=== PATIENT | female | born 1970 | race Native Hawaiian/Other Pacific Islander ===

== ENCOUNTER 2017-11-04 20:53 | Emergency (ER) | payer BC ==
[2017-11-04 21:11] VITALS: RESP 18
[2017-11-04] MEDS ORDERED: Sodium Chloride 0.9% 1,000 ML IV STA ×2 (21:16→22:51)
--- NOTE | 2017-11-04 21:53 | ED PDOC ---
Arrival/HPI - General Chief Complaint: Syncope Time Seen by Provider: 11/04/17 21:05 Historian: Patient - History of Present Illness Narrative History of Present Illness (Text): 47 y/o woma w/ pmhx of mandibular infection and subsequent bactereia, s/p tubal ligation , cigarette smoking , fam hx (-) for premature acs, bu + cad and dm in one of her patients [place] [facility] [place] d-dimer(-) / 1 set of ce's (-) / b/l venous doppler (-) w/ otherwise nl cbc/chem/pt/ptt/ inr testing ( all on file here ) for what she describes as a syncope of aftera long da y of work in which she reached for the light prior to bed then awke to finde herself assisted on her bed and assisted off the bed/ w/ LLE in a non-physiologic position, followed by normal days of work on 11/01-11/02 to be awoken by uncontrollable rigors in the early nighttime am of 11/03 accompanied by chest pressure and tightness which all abated within an hour and then she fell back to sleep. 11/03 remainder of day was wnl, although she for the 1st time skipped work, 11/04 today am she was once again awoken by rigors, and now worseining left knee pain , and a new onset rle sciatica likle pain. Pt. denies any exertional exacerbation of her further cp/cortes/sob/op. Of note pt denies any acute symptoms of infective foci such as viral URI like symptoms / dysuria/ rash/nuchal rigidity/ vaginal discharge nor GI symptoms. . 11/04/17 21:41 11/04/17 21:53 11/04/17 21:59 Time/Duration: < week Symptom Onset: Gradual Symptom Course: Worsening Past Medical History - Provider Review Nursing Documentation Reviewed: Yes - Tetanus Immunization Tetanus Immunization: Unknown - Cardiac Hx Cardiac Disorders: No Hx Hypotension: Yes - Pulmonary Hx Respiratory Disorders: No - Neurological Hx Syncope: Yes - HEENT Hx HEENT Disorder: No - Renal Hx Renal Disorder: No - Endocrine/Metabolic Hx Endocrine Disorders: No - Hematological/Oncological Hx Blood Disorders: No - Integumentary Hx Dermatological Disorder: No - Musculoskeletal/Rheumatological Hx Musculoskeletal Disorders: No Hx Falls: No - Gastrointestinal Hx Gastrointestinal Disorders: No - Genitourinary/Gynecological Hx Genitourinary Disorders: No - Psychiatric Hx Psychophysiologic Disorder: No Hx Depression: No Hx Emotional Abuse: No Hx Physical Abuse: No Hx Substance Use: No - Surgical History Other/Comment: wisdom/molar to left side of mouth removed 05/2015. tibal ligation - Suicidal Assessment Feels Threatened In Home Enviroment: No Family/Social History - Physician Review Nursing Documentation Reviewed: Yes Family/Social History: No Known Family HX Smoking Status: Light Smoker < 10 Cigarettes Daily Hx Alcohol Use: No Hx Substance Use: No Hx Substance Use Treatment: No Allergies/Home Meds Allergies/Adverse Reactions: Allergies Penicillins Allergy (Verified 07/14/15 19:42) RASH Review of Systems - Physician Review All systems were reviewed & negative as marked: Yes - Review of Systems Constitutional: Normal Eyes: Normal ENT: Normal Respiratory: Normal Cardiovascular: Normal Gastrointestinal: Normal Genitourinary Female: Normal Musculoskeletal: Normal Skin: Normal Neurological: Normal Endocrine: Normal Hemo/Lymphatic: Normal Psychiatric: Normal Physical Exam Vital Signs Reviewed: Yes Vital Signs Temp Pulse Resp BP Pulse Ox 11/04/17 22:48 98.4 F 68 18 119/71 96 11/04/17 21:05 100 F H 84 18 126/70 96 Temperature: Febrile Blood Pressure: Normal Pulse: Regular Respiratory Rate: Normal Appearance: Positive for: Well-Appearing, Non-Toxic, Comfortable Pain Distress: None Mental Status: Positive for: Alert and Oriented X 3 - Systems Exam Head: Present: Atraumatic, Normocephalic Pupils: Present: PERRL Extroacular Muscles: Present: EOMI Conjunctiva: Present: Normal Mouth: Present: Dry Neck: Present: Normal Range of Motion Respiratory/Chest: Present: Clear to Auscultation, Good Air Exchange. No: Respiratory Distress, Accessory Muscle Use Cardiovascular: Present: Regular Rate and Rhythm, Normal S1, S2. No: Murmurs Abdomen: Present: Normal Bowel Sounds, Other (soft/nt/nd/bs throughout ). No: Tenderness, Distention, Peritoneal Signs Genitourinary/Pelvic Exam: Present: Other (deferred ) Back: Present: Normal Inspection Upper Extremity: Present: Normal Inspection. No: Cyanosis, Edema Lower Extremity: Present: Other (+ medial knee joint line ttp /mild swelling , no realtive varus/valgus laxity ). No: Edema Neurological: Present: GCS=15, CN II-XII Intact, Speech Normal, Motor Func Grossly Intact, Normal Sensory Function, Normal Cerebellar Funct, Norm Deep Tendon Reflexes, Gait Normal, Memory Normal, Normal 2Pt Descrimination Skin: Present: Warm, Dry, Normal Color. No: Rashes Psychiatric: Present: Alert, Oriented x 3, Normal Insight, Normal Concentration Medical Decision Making ED Course and Treatment: 47 y/o woman presents fromn urgent care center w/u(-) for tropninemia/dvt's c/o syncopal events/cp /rigors/subjective fevers cp r/o acs w/ serial ce's /ekgs given family hx - consider observation rigors: infective w/u : [facility] 11/04/17 22:07 11/04/17 22:35 ekg: nsr @ 65 bpm, w/ no 11/04/17 23:17 CP: 2 sets of ce's (-) / ekg's (-) for acute ischemic st-t segments- [place] hs been ruled out, pt essentially PERC (-) d-dimer (-) venous doppler (-) will be advised to f/u with outpatient cardiology for further risk stratification prn coninuing chest pains. Infective foci w/u (+ ) hemorhagic cystitis : levaquin / 2 L IVf's - pt ambulatory and feels better lle knee pain : mild sprain : bulky perdomo wrap RLE sciatica likle pain: much improved s/p toradol /tylenol. headache also abated. 11/04/17 23:22 - Lab Interpretations Lab Results: 11/04/17 22:19 11/04/17 22:19 Lab Results 11/04/17 22:19: Sodium 139, Potassium 3.7, Chloride 105, Carbon Dioxide 24, Anion Gap 15, BUN 12, Creatinine 0.6 L, Est GFR ( Amer) > 60, Est GFR ( Non-Af Amer) > 60, Random Glucose 112 H, Calcium 8.9, Magnesium 2.1, Total Bilirubin 0.3, AST 24, ALT 24, Alkaline Phosphatase 78, Lactate Dehydrogenase 375, Total Creatine Kinase 45, Troponin I < 0.01, Total Protein 6.7, Albumin 4.0 , Globulin 2.8, Albumin/Globulin Ratio 1.4 11/04/17 22:19: Urine Color Yellow, Urine Appearance Sl cloudy, Urine pH 7.5, Ur Specific [place] 1.015, Urine Protein Trace H, Urine Glucose (UA) Negative, Urine Ketones Negative, Urine Blood Large H, Urine Nitrate Positive H, Urine Bilirubin Negative, Urine Urobilinogen 0.2, Ur Leukocyte Esterase Moderate H, Urine RBC 5 - 10, Urine WBC 15 - 20, Ur Epithelial Cells 6 - 8, Urine Bacteria Large 11/04/17 22:19: PT 12.1, INR 1.06, APTT 28.5 11/04/17 22:19: WBC 11.0 D, RBC 4.17, Hgb 12.8, Hct 37.5, MCV 89.9, MCH 30.7, MCHC 34.1, RDW 13.4, Plt Count 250, MPV 9.8, Gran % 70.8 H, Lymph % (Auto) 18.8 L, [place] % (Auto) 9.4 H, Eos % (Auto) 0.8 L, Baso % (Auto) 0.2, Gran # 7.75 H, Lymph # (Auto) 2.1, [place] # (Auto) 1.0 H, Eos # (Auto) 0.1, Baso # (Auto) 0.02 - RAD Interpretation Radiology Orders: 11/04/17 21:15 CHEST TWO VIEWS (PA/LAT) [RAD] Stat 11/04/17 21:53 KNEE LEFT 2 VIEWS (AP & LAT) [RAD] Stat - Medication Orders Current Medication Orders: Sodium Chloride (Sodium Chloride 0.9%) 1,000 mls @ 999 mls/hr IV .Q1H1M STA Stop: 11/04/17 23:51 Last Admin: 11/04/17 23:00 Dose: 999 mls/hr eMAR Start Stop Document 11/04/17 23:00 RD (Rec: 11/04/17 23:00 RD [id number]) Intravenous Solution Start Date 11/04/17 Start Time 23:00 End Date 11/05/17 End time 00:00 Total Infusion Time 60 Discontinued Medications Acetaminophen (Tylenol 325mg Tab) 650 mg PO STAT STA Stop: 11/04/17 21:39 Last Admin: 11/04/17 22:09 Dose: 650 mg MAR Pain/Vitals Document 11/04/17 22:09 RD (Rec: 11/04/17 22:10 RD [id number]) Pain Reassessment Is This A Pain ReAssessment? No Sleep Is patient sleeping during reassessment? No Presence of Pain Presence of Pain Yes Sodium Chloride (Sodium Chloride 0.9%) 1,000 mls @ 999 mls/hr IV .Q1H1M STA Stop: 11/04/17 22:16 Last Admin: 11/04/17 22:09 Dose: 999 mls/hr eMAR Start Stop Document 11/04/17 22:09 RD (Rec: 11/04/17 22:09 RD [id number]) Intravenous Solution Start Date 11/04/17 Start Time 22:09 End Date 11/04/17 End time 23:09 Total Infusion Time 60 Ketorolac Tromethamine (Toradol) 30 mg IVP STAT STA Stop: 11/04/17 21:39 Last Admin: 11/04/17 22:09 Dose: 30 mg MAR Pain Assessment Document 11/04/17 22:09 RD (Rec: 11/04/17 22:09 RD [id number]) Pain Reassessment Is this a pain reassessment? No Sleep Is patient sleeping during reassessment? No Presence of Pain Presence of Pain Yes IVP Administration Document 11/04/17 22:09 RD (Rec: 11/04/17 22:09 RD [id number]) Charges for Administration # of IVP Administrations 1 Levofloxacin/Dextrose (Levaquin 750mg) 750 mg IVPB ONCE ONE PRN Reason: Protocol Stop: 11/04/17 22:46 Last Admin: 11/04/17 23:00 Dose: 750 mg eMAR Start Stop Document 11/04/17 23:00 RD (Rec: 11/04/17 23:00 RD [id number]) Intravenous Solution Start Date 11/04/17 Start Time 23:00 End Date 11/05/17 End time 00:30 Total Infusion Time 90 Disposition/Present on Arrival - Present on Arrival Any Indicators Present on Arrival: No History of DVT/PE: No History of Uncontrolled Diabetes: No Urinary Catheter: No History of Decub. Ulcer: No History Surgical Site Infection Following: None - Disposition Have Diagnosis and Disposition been Completed?: Yes Diagnosis: Urinary tract infection, Dehydration, Atypical chest pain, Sepsis Disposition: HOME/ ROUTINE Disposition Time: 23:25 Patient Plan: Discharge Condition: IMPROVED Discharge Instructions (ExitCare): Chest Pain (ED), Sepsis (ED), Urinary Tract Infections in Adults Print Language: FRENCH Additional Instructions: Please stop smoking if you care about your heart. If you begin to suffer repetitive chest pains please return to The ED for further evaluaton . Further evalution by a cardiologst is also advised for comprehensive chest pain evaluation/cardiac risk stratification. Today we found noveidence of myocardial infarction/ nor blood clot in your chest nor extremitites. We diagnosed you with dehydration and urinary tract infection. Try to drink 2.5 - 3l OF WATER DAILY and especially while taking these antibiotics. exercise while taking these antiobiotcs is advised against. Prescriptions: Acetaminophen [Tylenol] 650 mg PO Q8 PRN #40 capsule PRN Reason: Fever >100.4 F Ciprofloxacin HCl [Cipro] 500 mg PO BID #10 tablet Referrals: Red Ho MD [Primary Care Provider] - Follow up with primary Forms: [employer] (Vietnamese), WORK NOTE
[2017-11-04 22:25] LABS: BASO # 0.02 K/mm3 (0.0-2.0); BASO % 0.2 % (0.0-3.0); EOS # 0.1 (0.0-0.7); EOS % 0.8 % (1.5-5.0); GRAN # 7.75 (1.4-6.5); GRAN % 70.8 % (50.0-68.0); HEMOGLOBIN 12.8 g/dL (12.0-16.0); LYMPH # 2.1 (1.2-3.4); LYMPH % 18.8 % (22.0-35.0); MEAN CELL VOLUME 89.9 fl (80.0-105.0); MEAN CORPUSCULAR HEMOGLOBIN 30.7 pg (25.0-35.0); MEAN CORPUSCULAR HGB CONC 34.1 g/dl (31.0-37.0); MEAN PLATELET VOLUME 9.8 fl (7.0-11.0); MONO % 9.4 % (1.0-6.0); RBC 4.17 10^6/uL (3.5-6.1); RED CELL DISTRIBUTION WIDTH 13.4 % (11.5-14.5)
[2017-11-04 22:34] LABS: ALB/GLOB RATIO 1.4 (1.1-1.8); ALT/SGPT 24 U/L (7-56); AST/SGOT 24 U/L (14-36); BLOOD UREA NITROGEN 12 mg/dL (7-21); CALCIUM 8.9 mg/dL (8.4-10.5); GFR AFRICAN-AMERICAN > 60; GFR NON-AFRICAN AMERICAN > 60
[2017-11-04 22:39] LABS: PH,URINE 7.5 (4.7-8.0); URINE APPEARANCE SL CLOUDY (CLEAR); URINE BILIRUBIN NEGATIVE (NEGATIVE); URINE BLOOD LARGE (NEGATIVE); URINE COLOR YELLOW (YELLOW); URINE GLUCOSE (UA) NEGATIVE (NEGATIVE); URINE LEUKOCYTE ESTERASE MODERATE Leu/uL (NEGATIVE); URINE PROTEIN TRACE mg/dL (<30 mg/dL); URINE UROBILINOGEN 0.2 E.U./dL (<1 E.U./dL)
[2017-11-04 22:45] LABS: INR 1.06 (0.93-1.08); PARTIAL THROMBOPLASTIN TIME 28.5 Seconds (25.1-36.5); PROTHROMBIN TIME 12.1 SECONDS (9.4-12.5); TROPONIN I < 0.01 ng/mL
[2017-11-04] MEDS ORDERED: levoFLOXacin 750 mg in D5W 150 ML BAG IVPB ONE (22:45)
[2017-11-04 22:48] VITALS: TEMP 98.4
[2017-11-04 22:58] LABS: URINE WBC 15 - 20 /hpf (0-6)
[2017-11-04 22:59] LABS: URINE BACTERIA LARGE (NEG)
[2017-11-05 00:39] VITALS: BP 107/65; PULSE 73; O2SAT 98
--- NOTE | 2017-11-05 07:28 | RAD ---
HISTORY: Routine medical exam COMPARISON: No prior. TECHNIQUE: Chest PA and lateral FINDINGS: LUNGS: No active pulmonary disease. PLEURA: No significant pleural effusion identified. No pneumothorax apparent. CARDIOVASCULAR: No radiographic findings to suggest acute or significant cardiovascular disease. OSSEOUS STRUCTURES: No significant abnormalities. VISUALIZED UPPER ABDOMEN: Normal. OTHER FINDINGS: None. IMPRESSION: No active disease.
--- NOTE | 2017-11-05 07:28 | RAD ---
PROCEDURE: Left Knee Radiographs. HISTORY: Posttraumatic pain COMPARISON: None. FINDINGS: BONES: Normal. No fracture. JOINTS: Normal. No osteoarthritis. JOINT EFFUSION: None. OTHER FINDINGS: None. IMPRESSION: Normal radiographs of the left knee.
--- NOTE | 2017-11-05 13:01 | CARD ---
APPROVED REPORT EKG Measurement Heart [id number] <Conclusion> Normal sinus rhythm Possible Left atrial enlargement Incomplete right bundle branch block Borderline ECG
== END 2017-11-05 00:38 | disposition home or self-care (01) ==
LOC: ED 20:53
DX: N39.0 Urinary tract infection, site not specified (principal); E86.0 Dehydration; R07.89 Other chest pain; A41.9 Sepsis, unspecified organism
CPT/HCPCS: 71046; 73560; 80053; 81001; 82550; 83615; 83735; 84484; 85025; 85610; 85730; 87040; 87086; 87181; 93005; 96361; 96365; 96375; 99285; J1885; J7030

== ENCOUNTER 2017-11-06 10:57 | Inpatient (IN) | payer BC ==
[2017-11-06 11:05] VITALS: BMI 21.9
[2017-11-06] MEDS ORDERED: Sodium Chloride 0.9% 1,000 ML IV STA (11:20)
--- NOTE | 2017-11-06 11:23 | ED PDOC ---
Arrival/HPI - General Chief Complaint: Fever Time Seen by Provider: 11/06/17 11:02 Historian: Patient - History of Present Illness Narrative History of Present Illness (Text): 11/06/17 11:20 47 year old female, whose PMH includes hypotension, who presents to the emergency department complaining of right sided flank pain since 5 days ago. Patient reports she was diagnosed with a UTI 2 days ago when she went to the emergency department, but the pain has become worse and associated with fever and fatigue. Patient denies shortness of breath, chest pain, nausea, vomiting, diarrhea, hematuria, or other complaints. PMD: Dr. Christian Time/Duration: < week Symptom Onset: Gradual Symptom Course: Worsening Context: Home Past Medical History - Provider Review Nursing Documentation Reviewed: Yes - Infectious Disease Hx of Infectious Diseases: None - Tetanus Immunization Tetanus Immunization: Unknown - Cardiac Hx Cardiac Disorders: No Hx Hypotension: Yes - Pulmonary Hx Respiratory Disorders: No - Neurological Hx Syncope: Yes - HEENT Hx HEENT Disorder: No - Renal Hx Renal Disorder: No - Endocrine/Metabolic Hx Endocrine Disorders: No - Hematological/Oncological Hx Blood Disorders: No - Integumentary Hx Dermatological Disorder: No - Musculoskeletal/Rheumatological Hx Musculoskeletal Disorders: No Hx Falls: No - Gastrointestinal Hx Gastrointestinal Disorders: No - Genitourinary/Gynecological Hx Genitourinary Disorders: No - Psychiatric Hx Psychophysiologic Disorder: No Hx Depression: No Hx Emotional Abuse: No Hx Physical Abuse: No Hx Substance Use: No - Surgical History Other/Comment: wisdom/molar to left side of mouth removed 05/2015. tibal ligation - Suicidal Assessment Feels Threatened In Home Enviroment: No Family/Social History - Physician Review Nursing Documentation Reviewed: Yes Family/Social History: Unknown Family HX Smoking Status: Light Smoker < 10 Cigarettes Daily Hx Alcohol Use: No Hx Substance Use: No Hx Substance Use Treatment: No Allergies/Home Meds Allergies/Adverse Reactions: Allergies Penicillins Allergy (Verified 07/14/15 19:42) RASH Home Medications: Home Meds Medication Instructions Recorded Confirmed Ferrous Sulfate [Feosol] 325 mg PO DAILY 11/06/17 11/06/17 Multivitamin [Multivitamins] 1 each PO DAILY 11/06/17 11/06/17 Review of Systems - Review of Systems Constitutional: Fatigue, Fevers Respiratory: absent: SOB Cardiovascular: absent: Chest Pain Gastrointestinal: Abdominal Pain (right sided radiating to back ). absent: Diarrhea, Nausea, Vomiting Genitourinary Female: absent: Hematuria Musculoskeletal: Back Pain (right sided ) Skin: absent: Rash Neurological: absent: Headache Endocrine: absent: Diaphoresis Physical Exam Vital Signs Reviewed: Yes Vital Signs Temp Pulse Resp BP Pulse Ox 11/06/17 12:20 100.1 F H 88 18 106/65 99 11/06/17 11:06 99.6 F 86 18 104/62 99 Temperature: Afebrile Blood Pressure: Normal Pulse: Regular Respiratory Rate: Normal Appearance: Positive for: Well-Appearing, Non-Toxic, Comfortable Pain Distress: None Mental Status: Positive for: Alert and Oriented X 3 - Systems Exam Head: Present: Atraumatic, Normocephalic Pupils: Present: PERRL Extroacular Muscles: Present: EOMI Conjunctiva: Present: Normal Cardiovascular: Present: Regular Rate and Rhythm, Normal S1, S2. No: Murmurs Abdomen: Present: Tenderness (right sided flank pain), Normal Bowel Sounds. No : Distention, Peritoneal Signs, Guarding Neurological: Present: GCS=15, CN II-XII Intact, Speech Normal Skin: Present: Warm, Dry, Normal Color. No: Rashes Psychiatric: Present: Alert, Oriented x 3, Normal Insight, Normal Concentration Medical Decision Making ED Course and Treatment: 11/06/17 Impression: 47 year old female with right sided flank tenderness complaining of right sided flank pain and fever since 5 days. Plan: -- CT abdomen and pelvis -- Labs -- Sodium Chloride -- Urinalysis -- Reassess and disposition Progress Notes: 11/06/17 14:20 CT abdomen and pelvis: Creator : Jose Ro MD FINDINGS: LOWER THORAX: Unremarkable. LIVER: Unremarkable. No gross lesion or ductal dilatation. GALLBLADDER AND BILE DUCTS: Unremarkable. PANCREAS: Unremarkable. No gross lesion or ductal dilatation. SPLEEN: Unremarkable. ADRENALS: Unremarkable. No mass. KIDNEYS AND URETERS: There is perinephric stranding around the right kidney. The right kidney also appears slightly enlarged. There is no evidence of hydronephrosis. Findings could be secondary to a recently passed stone or to pyelonephritis. Clinical correlation is suggested VASCULATURE: Unremarkable. No aortic aneurysm. BOWEL: Unremarkable. No obstruction. No gross mural thickening. APPENDIX: Unremarkable. Normal appendix. PERITONEUM: Unremarkable. No free fluid. No free air. LYMPH NODES: Unremarkable. No enlarged lymph nodes. BLADDER: Unremarkable. REPRODUCTIVE: Unremarkable. BONES: No acute fracture. OTHER FINDINGS: None. IMPRESSION: There is perinephric stranding around the right kidney. The right kidney also appears slightly enlarged. There is no evidence of hydronephrosis. Findings could be secondary to a recently passed stone or to pyelonephritis. Clinical correlation is suggested 11/06/17 16:23 pt with failure of outpt. discussed with dr casanova acceptchidi for admission. 11/06/17 16:24 allergy to pcn is rash, will give cephalosporin - Lab Interpretations Lab Results: 11/06/17 11:30 11/06/17 11:30 Lab Results 11/06/17 11:30: Sodium 143, Potassium 3.6, Chloride 106, Carbon Dioxide 27, Anion Gap 13, BUN 8, Creatinine 0.5 L, Est GFR ( Amer) > 60, Est GFR (Non -Af Amer) > 60, Random Glucose 86, Calcium 8.9, Magnesium 2.2, Total Bilirubin 0.3, AST 21, ALT 32, Alkaline Phosphatase 87, Total Protein 6.8, Albumin 3.8, Globulin 3.0, Albumin/Globulin Ratio 1.3, Lipase 29 11/06/17 11:30: Urine Color Yellow, Urine Appearance Clear, Urine pH 8.0, Ur Specific [place] >= 1.030, Urine Protein Trace H, Urine Glucose (UA) Negative, Urine Ketones Negative, Urine Blood Moderate H, Urine Nitrate Negative, Urine Bilirubin Negative, Urine Urobilinogen 0.2, Ur Leukocyte Esterase Trace H, Urine RBC 10 - 15, Urine WBC 2 - 5, Ur Epithelial Cells 4 - 5, Urine Bacteria Many, Urine Other [place]yeast 11/06/17 11:30: PT 13.6 H, INR 1.18 H, APTT 28.9 11/06/17 11:30: WBC 14.2 H D, RBC 4.13, Hgb 12.7, Hct 37.5, MCV 90.8, MCH 30.8, MCHC 33.9, RDW 13.3, Plt Count 236, MPV 9.6, Gran % 70.4 H, Lymph % (Auto) 15.9 L, [place] % (Auto) 13.2 H, Eos % (Auto) 0.4 L, Baso % (Auto) 0.1, Gran # 9.97 H, Lymph # (Auto) 2.3, [place] # (Auto) 1.9 H, Eos # (Auto) 0.1, Baso # (Auto) 0.02 I have reviewed the lab results: Yes - RAD Interpretation Radiology Orders: 11/06/17 11:20 ABD & PELVIS W/O PO OR IV CONT [CT] Stat [employer] Driver: Radiologist - Medication Orders Current Medication Orders: Hydromorphone HCl (Dilaudid) 0.25 mg IVP Q6H PRN PRN Reason: Pain, moderate (4-7) Discontinued Medications Sodium Chloride (Sodium Chloride 0.9%) 1,000 mls @ 1,000 mls/hr IV .Q1H STA Stop: 11/06/17 12:19 Last Admin: 11/06/17 11:41 Dose: 1,000 mls/hr eMAR Start Stop Document 11/06/17 11:41 HI (Rec: 11/06/17 11:42 HI [id number]) Intravenous Solution Start Date 11/06/17 Start Time 11:42 Ceftriaxone Sodium (Rocephin 1 Gram Ivpb) 1 gm in 100 mls @ 100 mls/hr IVPB STAT STA PRN Reason: Protocol Stop: 11/06/17 12:56 Last Admin: 11/06/17 12:30 Dose: 100 mls/hr eMAR Start Stop Document 11/06/17 12:30 HI (Rec: 11/06/17 12:30 ME [id number]) Intravenous Solution Start Date 11/06/17 Start Time 12:30 Ketorolac Tromethamine (Toradol) 30 mg IVP STAT STA Stop: 11/06/17 11:56 Last Admin: 11/06/17 12:29 Dose: 30 mg MAR Pain Assessment Document 11/06/17 12:29 HI (Rec: 11/06/17 12:30 [id number] Pain Reassessment Is this a pain reassessment? No Location Left, Right or Bilateral Right Upper or Lower Lower Pain Location Body Site Abdomen Description Description Constant Intensity of Pain at present 7 Pain Behavior Moaning Facial Grimacing VS Changes IVP Administration Document 11/06/17 12:29 HI (Rec: 11/06/17 12:30 HI [id number]) Charges for Administration # of IVP Administrations 1 Pneumococcal Polyvalent Vaccine (Pneumovax 23 Vaccine) 0.5 ml IM .ONCE ONE Stop: 11/06/17 15:49 - Scribe Statement The provider has reviewed the documentation as recorded by the Scribe Yolanda Stevenson Provider Scribe Attestation: All medical record entries made by the Scribe were at my direction and personally dictated by me. I have reviewed the chart and agree that the record accurately reflects my personal performance of the history, physical exam, medical decision making, and the department course for this patient. I have also personally directed, reviewed, and agree with the discharge instructions and disposition. Disposition/Present on Arrival - Present on Arrival Any Indicators Present on Arrival: No History of DVT/PE: No History of Uncontrolled Diabetes: No Urinary Catheter: No History of Decub. Ulcer: No History Surgical Site Infection Following: None - Disposition Have Diagnosis and Disposition been Completed?: Yes Diagnosis: Pyelonephritis Disposition: HOSPITALIZED Disposition Time: 03:00 Condition: STABLE
[2017-11-06 11:49] LABS: BASO # 0.02 K/mm3 (0.0-2.0); BASO % 0.1 % (0.0-3.0); EOS # 0.1 (0.0-0.7); EOS % 0.4 % (1.5-5.0); GRAN # 9.97 (1.4-6.5); GRAN % 70.4 % (50.0-68.0); HEMOGLOBIN 12.7 g/dL (12.0-16.0); LYMPH # 2.3 (1.2-3.4); LYMPH % 15.9 % (22.0-35.0); MEAN CELL VOLUME 90.8 fl (80.0-105.0); MEAN CORPUSCULAR HEMOGLOBIN 30.8 pg (25.0-35.0); MEAN CORPUSCULAR HGB CONC 33.9 g/dl (31.0-37.0); MEAN PLATELET VOLUME 9.6 fl (7.0-11.0); MONO # 1.9 (0.1-0.6); MONO % 13.2 % (1.0-6.0); RBC 4.13 10^6/uL (3.5-6.1); RED CELL DISTRIBUTION WIDTH 13.3 % (11.5-14.5); WHITE BLOOD COUNT 14.2 10^3/ul (4.5-11.0)
[2017-11-06 11:51] LABS: URINE BILIRUBIN NEGATIVE (NEGATIVE); URINE BLOOD MODERATE (NEGATIVE); URINE GLUCOSE (UA) NEGATIVE (NEGATIVE); URINE LEUKOCYTE ESTERASE TRACE Leu/uL (NEGATIVE); URINE PROTEIN TRACE mg/dL (<30 mg/dL); URINE UROBILINOGEN 0.2 E.U./dL (<1 E.U./dL)
[2017-11-06 11:54] LABS: URINE APPEARANCE CLEAR (CLEAR); URINE COLOR YELLOW (YELLOW)
[2017-11-06] MEDS ORDERED: cefTRIAXone 1 gm 1 GM/100 ML BAG IVPB STA (11:57)
[2017-11-06 11:58] LABS: ALB/GLOB RATIO 1.3 (1.1-1.8); ALBUMIN 3.8 g/dL (3.0-4.8); ALT/SGPT 32 U/L (7-56); AST/SGOT 21 U/L (14-36); BLOOD UREA NITROGEN 8 mg/dL (7-21); CALCIUM 8.9 mg/dL (8.4-10.5); GFR AFRICAN-AMERICAN > 60; GFR NON-AFRICAN AMERICAN > 60; LIPASE 29 U/L (23-300)
[2017-11-06 12:16] LABS: INR 1.18 (0.93-1.08); PARTIAL THROMBOPLASTIN TIME 28.9 Seconds (25.1-36.5); PROTHROMBIN TIME 13.6 SECONDS (9.4-12.5)
[2017-11-06 12:22] LABS: URINE BACTERIA MANY (NEG)
--- NOTE | 2017-11-06 14:19 | CT ---
PROCEDURE: CT Abdomen and Pelvis without intravenous contrast HISTORY: right flank pain COMPARISON: None. TECHNIQUE: Without contrast.. Contrast dose: Radiation dose: Total exam DLP = 485 mGy-cm. This CT exam was performed using one or more of the following dose reduction techniques: Automated exposure control, adjustment of the mA and/or kV according to patient size, and/or use of iterative reconstruction technique. FINDINGS: LOWER THORAX: Unremarkable. LIVER: Unremarkable. No gross lesion or ductal dilatation. GALLBLADDER AND BILE DUCTS: Unremarkable. PANCREAS: Unremarkable. No gross lesion or ductal dilatation. SPLEEN: Unremarkable. ADRENALS: Unremarkable. No mass. KIDNEYS AND URETERS: There is perinephric stranding around the right kidney. The right kidney also appears slightly enlarged. There is no evidence of hydronephrosis. Findings could be secondary to a recently passed stone or to pyelonephritis. Clinical correlation is suggested VASCULATURE: Unremarkable. No aortic aneurysm. BOWEL: Unremarkable. No obstruction. No gross mural thickening. APPENDIX: Unremarkable. Normal appendix. PERITONEUM: Unremarkable. No free fluid. No free air. LYMPH NODES: Unremarkable. No enlarged lymph nodes. BLADDER: Unremarkable. REPRODUCTIVE: Unremarkable. BONES: No acute fracture. OTHER FINDINGS: None. IMPRESSION: There is perinephric stranding around the right kidney. The right kidney also appears slightly enlarged. There is no evidence of hydronephrosis. Findings could be secondary to a recently passed stone or to pyelonephritis. Clinical correlation is suggested
[2017-11-06] MEDS ORDERED: HYDROmorphone 0.5 mg/0.5 ml ISec IVP PRN (15:33)
[2017-11-06] MEDS ORDERED: Pneumococcal 23-Valent Vaccine IM ONE (15:48)
--- NOTE | 2017-11-06 17:17 | CP.PCM.CON ---
History of Present Illness - History of Present Illness History of Present Illness: 47 year old female with PMH of tubal ligation, was recently seen in the ED 2 days ago after complaining of dysuria for 3 days and she was sent home to treat UTI with Ciprofloxacin. However, she started developing fevers, nausea and right sided flank pain and right sided abdominal pain. She denies diarrhea, no headache or dizziness, had chills and sweats, no blurring of vision, no chest pain, no SOB, no cough or colds. In the ED, the patient had CT A/P done which is showing right sided perinephric stranding. Infectious Diseases consult is requested to further evaluate and manage. The patient denies recent travel outside of [place] in the past 3 months. Review of Systems - Review of Systems All systems: reviewed and no additional remarkable complaints except (as per HPI ) Past Patient History - Infectious Disease Hx of Infectious Diseases: None - Tetanus Immunizations Tetanus Immunization: Unknown - Past Social History Smoking Status: Light Smoker < 10 Cigarettes Daily - CARDIAC Hx Cardiac Disorders: No Hx Hypotension: Yes - PULMONARY Hx Respiratory Disorders: No - NEUROLOGICAL Hx Syncope: Yes - HEENT Hx HEENT Problems: No - RENAL Hx Chronic Kidney Disease: No - ENDOCRINE/METABOLIC Hx Endocrine Disorders: No - HEMATOLOGICAL/ONCOLOGICAL Hx Blood Disorders: No - INTEGUMENTARY Hx Dermatological Problems: No - MUSCULOSKELETAL/RHEUMATOLOGICAL Hx Musculoskeletal Disorders: No Hx Falls: No - GASTROINTESTINAL Hx Gastrointestinal Disorders: No - GENITOURINARY/GYNECOLOGICAL Hx Genitourinary Disorders: No - PSYCHIATRIC Hx Psychophysiologic Disorder: No Hx Depression: No Hx Emotional Abuse: No Hx Physical Abuse: No Hx Substance Use: No - SURGICAL HISTORY Other/Comment: wisdom/molar to left side of mouth removed 05/2015. tibal ligation Meds Allergies/Adverse Reactions: Allergies Allergy/AdvReac Type Severity Reaction Status Date / Time Penicillins Allergy RASH Verified 07/14/15 19:42 - Medications Medications: Current Medications Hydromorphone HCl (Dilaudid) 0.25 mg IVP Q6H PRN PRN Reason: Pain, moderate (4-7) Physical Exam - Constitutional Appears: Non-toxic - Head Exam Head Exam: NORMAL INSPECTION - ENT Exam ENT Exam: Mucous Membranes Moist - Neck Exam Neck exam: Negative for: Meningismus - Respiratory Exam Respiratory Exam: absent: Rales, Rhonchi - Cardiovascular Exam Cardiovascular Exam: +S1, +S2 - GI/Abdominal Exam GI & Abdominal Exam: Soft. absent: Tenderness - Back Exam Back exam: CVA tenderness (R) Results - Vital Signs Recent Vital Signs: Last Vital Signs Temp 99.8 F H 11/06/17 15:19 Pulse 82 11/06/17 15:19 Resp 18 11/06/17 15:19 BP 110/72 11/06/17 15:19 Pulse Ox 99 11/06/17 15:10 - Labs Result Diagrams: 11/06/17 11:30 11/06/17 11:30 Assessment & Plan - Assessment and Plan (Free Text) Plan: Assessment sepsis due to right sided pyelonephritis, growing gram negative bacilli in the urine Plan Due to PCN allergy, we have started Azactam pending identification and sensitvities of the gram negative bacilli in the urine from 11/04/2017; will also follow up blood cx and repeat urine cx from 11/16/2017 will check HIV test will monitor clinically
[2017-11-06] MEDS: Aztreonam 1 Gm in NS 100mL 100 ML IVPB SCH ×2 (17:40→21:39)
[2017-11-06 21:56] LABS: PH,URINE 6.5 (4.7-8.0); URINE BILIRUBIN NEGATIVE (NEGATIVE); URINE BLOOD LARGE (NEGATIVE); URINE GLUCOSE (UA) NEGATIVE (NEGATIVE); URINE LEUKOCYTE ESTERASE TRACE Leu/uL (NEGATIVE); URINE PROTEIN NEGATIVE mg/dL (<30 mg/dL); URINE UROBILINOGEN 0.2 E.U./dL (<1 E.U./dL)
[2017-11-06 21:57] LABS: URINE APPEARANCE CLEAR (CLEAR); URINE COLOR COLORLESS (YELLOW)
[2017-11-06 22:10] LABS: URINE EPITHELIAL CELLS 0 - 2 /hpf (0-5); URINE WBC 0 - 2 /hpf (0-6)
[2017-11-07] MEDS: Aztreonam 1 Gm in NS 100mL 100 ML IVPB SCH ×3 (05:37→22:02)
[2017-11-07 06:34] LABS: MEAN CELL VOLUME 90.1 fl (80.0-105.0); MEAN CORPUSCULAR HEMOGLOBIN 30.3 pg (25.0-35.0); MEAN CORPUSCULAR HGB CONC 33.6 g/dl (31.0-37.0); MEAN PLATELET VOLUME 9.9 fl (7.0-11.0); RBC 3.63 10^6/uL (3.5-6.1); RED CELL DISTRIBUTION WIDTH 13.4 % (11.5-14.5); WHITE BLOOD COUNT 8.8 10^3/ul (4.5-11.0)
[2017-11-07 06:56] LABS: IRON 43 ug/dL (45-180)
[2017-11-07 06:57] LABS: BLOOD UREA NITROGEN 9 mg/dL (7-21); CALCIUM 8.7 mg/dL (8.4-10.5); GFR AFRICAN-AMERICAN > 60; GFR NON-AFRICAN AMERICAN > 60; HDL CHOLESTEROL 40 mg/dL (29-60)
[2017-11-07 07:05] LABS: % IRON SATURATION 15 % (20-55); TOTAL IRON BINDING CAPACITY 292 ug/dL (265-497)
[2017-11-07 07:08] LABS: LDL CHOLESTEROL 81 mg/dL (0-129)
--- NOTE | 2017-11-07 07:16 | HP ---
CHIEF COMPLAINT: Fever, flank pain. HISTORY OF PRESENT ILLNESS: Ms. Imani Brooks is a 47-year-old female with past medical history of hypotension, came to the Emergency Department complaining of right-sided flank pain since 5 days. Patient reports that she was diagnosed with UTI 2 days ago when she went to the Emergency Department but the pain has become worse and associated with fever and fatigue. Patient denies shortness of breath. No chest pain. No nausea, vomiting or diarrhea. No itchiness of the skin. Patient last seen in the [facility], also antibiotics was given but was not helpful. PAST MEDICAL HISTORY: History of hypotension, history of syncope. FAMILY HISTORY: Father and mother noncontributory. HABITS: Light smoker. No alcohol. No substance abuse. ALLERGIES: PATIENT IS ALLERGIC WITH PENICILLIN. HOME MEDICATIONS: Iron sulfate, multivitamins. REVIEW OF SYSTEMS: Patient was seen on the bedside in her room. Her daughter, was sitting on the bedside also. Still having pain but little bit better. No nausea or vomiting. No fever. No chills. No headache. No dizziness. No chest pain. No palpitation. No rash on the skin. PHYSICAL EXAMINATION: VITAL SIGNS: Temperature 99.6, T-max 100.1; pulse 88, respiratory rate 18, blood pressure 106/65, pulse oximetry 99%. HEENT: Head: Normocephalic, atraumatic. Eyes: PERRLA. Extraocular muscles intact. Conjunctivae clear. Nose patent. Mucous membranes moist. NECK: Supple. No carotid bruit. No JVD or thyromegaly. CHEST: Bilaterally symmetrical. HEART: S1 and S2 positive. LUNGS: Clear to auscultation. ABDOMEN: Soft. Bowel sounds present. No organomegaly. EXTREMITIES: No edema. No cyanosis. NEUROLOGIC: Patient is awake and alert. Moving all 4 extremities. No focal deficits. LABORATORY DATA: White blood cell 14.2, hemoglobin 12.7, hematocrit 37.5, platelets 236. Sodium 143, potassium 3.6, BUN 8, creatinine 0.7, glucose 86. ASSESSMENT AND PLAN: Ms. Imani Brooks is a 47-year-old lady with leukocytosis, right flank pain, urinary tract infection, pyelonephritis, seen by Dr. Man Winston, partner of Dr. Collins. Patient had sepsis due to right-sided pyelonephritis, gram-negative bacilli in the urine. Due to bacillus, we have started Azactam, pending . negative bacilli in the urine from 11/03/2017, will follow with the blood cultures also. Repeat urine culture . We will do human immunodeficiency virus testing also as per Infectious Disease, Dr. Man Winston. We would consult with urologist also. Gastrointestinal and deep venous thrombosis prophylaxis. Repeat labs. We will follow up. Jaimie Collazo MD LEXIE
[2017-11-07 13:29] LABS: FOLATE 8.5 ng/mL
[2017-11-07 19:22] VITALS: O2SAT 97
--- NOTE | 2017-11-07 21:56 | PN ---
DATE: 11/07/2017 SUBJECTIVE: The patient is a 47-year-old female. The patient is seen and examined on the bedside. I am dictating progress note for 11/07/2018. DaughterMukul was sitting on the bedside also. Still having discomfort in the right flank, but not severe pain. No fever. No chills. No nausea, vomiting, diarrhea. No hematuria or hematochezia. No headache. No dizziness. No chest pain or palpitation. PHYSICAL EXAMINATION: VITAL SIGNS: Temperature 97.7, pulse rate 65, blood pressure 110/80 respiratory rate 20. HEENT: Head normocephalic, atraumatic. Eyes PERRLA. Extraocular muscles intact. Conjunctivae clear. Nose patent. Mucous membrane moist. NECK: Supple. No carotid bruit. No JVD or thyromegaly. CHEST: Bilaterally symmetrical. HEART: S1 and S2 positive. LUNGS: Clear to auscultation. ABDOMEN: Soft. Bowel sounds positive. No organomegaly. EXTREMITIES: No edema. No cyanosis. NEUROLOGICAL: The patient is awake and alert. Moving all 4 extremities. No focal deficits. MEDICATIONS: Azactam, Dilaudid, Pepcid, Tylenol. LABORATORY DATA: White blood cells 8.8, hemoglobin 11, hematocrit 32.7, platelets 229. On admission, white blood cell was 14.2. Sodium 143, potassium 3.7, BUN 9, creatinine 0.4, iron 43. ASSESSMENT AND PLAN: Ms. Imani Brooks, 47-year-old lady with leukocytosis, improved; anemia; hyperchloremia; iron deficiency. Came with right leg pain. Seen by Infectious Disease, Dr. Man Winston. The patient has history of tubal ligation. Seen in Emergency Department 2 times. Complaining of dysuria. The patient was sent home with ciprofloxacin. Came back with developing fever, nausea, right-sided flank pain and right-sided abdominal pain. Has right-sided pyelonephritis, growing gram-negative bacilli in the urine. Due to penicillin allergy, the patient was started on Azactam. Pending identification and sensitivities of the gram-negative bacilli in the urine. We will also follow up blood cultures and repeat urine cultures. Human immunodeficiency virus test done, results are pending. Discussion done with nursing staff. Reviewed CAT scan of the abdomen and pelvis. As per Dr. Schroeder, there is a perinephric stranding around the right kidney. The right kidney also appears slightly large. There is no obvious hydronephrosis. Finding could be secondary to recently passed stone or pyelonephritis. We will continue present treatment. Discussion done with the patient and the patient's daughter, Mukul. All questions answered. Waiting for input from Dr. Hilliard. We will follow. Jaimie Collazo MD MTDD
--- NOTE | 2017-11-08 00:33 | PN ---
DATE: 11/07/2017 SUBJECTIVE: The patient is in bed, was seen earlier today in room 360, bed 1, comfortable. No fevers, no chills. Overall, she appears to be improving. PHYSICAL EXAMINATION: VITAL SIGNS: Temperature is down to 98.4, it went up to 100.1 yesterday with a heart rate of 82, respiratory rate of 18. HEENT: Unremarkable. NECK: Supple. LUNGS: Have decreased breath sounds. HEART: Normal S1, S2. ABDOMEN: Soft, nontoxic. No rebound. No guarding. LABORATORY DATA: Reveals a white count is down to 8.8, hemoglobin of 11. Chemistries reveals a BUN of 8, creatinine of 0.8. Urinalysis reveals the patient had 2-5 wbc's. Microbiology reveals the urine cultures have no growth. CAT scan of the abdomen and pelvis reveals the patient to have a perinephric stranding around the right kidney. Review of orders reveals the patient to be on aztreonam. ASSESSMENT AND PLAN: This is a 47-year-old female, admitted with low-grade fevers. The patient was treated as outpatient for urinary tract infection with Cipro without improvement. Right now sepsis with a right-sided hydronephritis with repeat cultures, no growth. The patient did have Escherichia coli from 11/04/2017, that is pansensitive including sensitive to Cipro. THE PATIENT IS ALLERGIC TO PENICILLIN. Once the patient's symptoms did improve to use p.o. Cipro, we will complete 10 days of antibiotic therapy. Isaac Collins MD
[2017-11-08] MEDS: Aztreonam 1 Gm in NS 100mL 100 ML IVPB SCH ×2 (05:44→15:36)
[2017-11-08 08:12] VITALS: BP 105/48; PULSE 57; RESP 18; TEMP 98.4
--- NOTE | 2017-11-08 11:31 | US ---
PROCEDURE: Ultrasound of the Kidneys HISTORY: kidny stones COMPARISON: None available. TECHNIQUE: Sonogram of the kidneys. FINDINGS: RIGHT KIDNEY: Measures: cm. Normal in size, contour and echogenicity. No stone, solid mass lesion or hydronephrosis visualized. LEFT KIDNEY: Measures: cm. Normal in size, contour and echogenicity. No stone, solid mass lesion or hydronephrosis visualized. OTHER FINDINGS: None. IMPRESSION: Unremarkable renal sonogram.
--- NOTE | 2017-11-08 12:30 | PCM.URO ---
Urology Progress Note - Objective Lab Studies: Reviewed (gu plans : will review imaging and discuss further plans) Lab Results Last 24 Hours: Laboratory Results - last 24 hr 11/07/17 11/07/17 05:45 05:45 Vitamin B12 279 Folate 8.5 HIV 1&2 Ag/Ab, 4th Gen Nonreactive Intake & Output: Intake & Output 11/07/17 11/08/17 11/08/17 18:59 06:59 18:59 Intake Total 925 600 240 Balance 925 600 240 Intake: Oral 925 600 240 Other: # Voids Urine, Voided 6 3 2 # Bowel Movements 1 2 0 Vital Signs: Vital Signs - 24 hr 11/07/17 11/08/17 18:00 08:11 Temperature 97.7 F 98.4 F Pulse Rate 63 57 L Respiratory 20 18 Rate Blood Pressure 110/62 105/48 L O2 Sat by Pulse 97 97 Oximetry
--- NOTE | 2017-11-08 12:31 | PCM.URO ---
Urology Progress Note - Objective Lab Studies: Reviewed (full note to be dictated but no need for cystoscopy at this time there is no hydronephrosis seen and no stone seen on ultrasound or ct treatment with antibiotics and out pt follow up) Lab Results Last 24 Hours: Laboratory Results - last 24 hr 11/07/17 11/07/17 05:45 05:45 Vitamin B12 279 Folate 8.5 HIV 1&2 Ag/Ab, 4th Gen Nonreactive Intake & Output: Intake & Output 11/07/17 11/08/17 11/08/17 18:59 06:59 18:59 Intake Total 925 600 240 Balance 925 600 240 Intake: Oral 925 600 240 Other: # Voids Urine, Voided 6 3 2 # Bowel Movements 1 2 0 Vital Signs: Vital Signs - 24 hr 11/07/17 11/08/17 18:00 08:11 Temperature 97.7 F 98.4 F Pulse Rate 63 57 L Respiratory 20 18 Rate Blood Pressure 110/62 105/48 L O2 Sat by Pulse 97 97 Oximetry
--- NOTE | 2017-11-08 19:30 | PN ---
DATE: 11/08/2017 SUBJECTIVE: Patient is in bed, in no acute distress, nontoxic. PHYSICAL EXAMINATION: VITAL SIGNS: Temperature is 98, blood pressure is 105/40, respiratory rate of 18. HEENT: Unremarkable. NECK: Supple. LUNGS: Have decreased breath sounds. HEART: Normal S1 and S2. ABDOMEN: Soft, nontender. LABORATORY DATA: Reveals a white count of 8.8, hemoglobin of 11. Chemistries reveal a BUN of 9, creatinine of 0.4. Urinalysis is noted and serology is noted. HIV is negative. Microbiology is reviewed. Urine culture is negative. Renal ultrasound is unremarkable. Dr. Hilliard's noted is reviewed. The urine culture from 11/06/2017 is negative; from the 11/04/2017 is E. coli, which is sensitive to Cipro. Patient's CAT scan of the abdomen and pelvis, perinephric stranding, no evidence of hydro. ASSESSMENT AND PLAN: This is a 47-year-old female who was seen earlier this morning in room 360, bed 1, with Escherichia coli pyelonephritis who is ALLERGIC TO PENICILLIN, is sensitive to Cipro. She states she did take Cipro as outpatient; however, she had only been on it a few days; upon discharge, she may switch back to Cipro at 500 mg p.o. b.i.d. for a total of 10 days for right-sided Escherichia coli pyelonephritis. Currently, patient is on aztreonam and is much improved. We will follow with you. Isaac Collins MD
== END 2017-11-08 17:31 | disposition home or self-care (01) | DRG 872 ==
LOC: ED 10:57 → ERH 14:23 → 3RNO 15:35
PROVIDERS: ADMIT Internal Medicine; ATTEND Internal Medicine
DX: A41.9 Sepsis, unspecified organism (principal); N12 Tubulo-interstitial nephritis, not specified as acute or chronic; B96.20 Unspecified Escherichia coli [E. coli] as the cause of diseases classified elsewhere; F17.210 Nicotine dependence, cigarettes, uncomplicated; D64.9 Anemia, unspecified; Z98.51 Tubal ligation status; Z88.0 Allergy status to penicillin